=== PATIENT | female | born 1955 | race Caucasian/White ===

== ENCOUNTER 2021-12-30 10:26 | Inpatient (IN) ==
[2021-12-30] MEDS ORDERED: 0.9 % Sodium Chloride 500 ML IVC ONE (10:59)
[2021-12-30 11:28] LABS: Basophils % 0.6 %; Eosinophils # 0.1 K/mcL (0.0-0.6); Eosinophils % 0.8 %; Hematocrit 45.2 % (35.3-44.9); Hemoglobin 14.7 g/dL (11.5-15.4); Immature Granulocytes % 0.1 % (0-4); Lymphocytes # 1.9 K/mcL (0.6-4.6); Lymphocytes % 26.3 %; Mean Corpuscular HGB Conc 32.5 g/dL (31.6-35.5); Mean Corpuscular Hemoglobin 29.8 pg (28.0-33.3); Mean Corpuscular Volume 91.7 fL (83.0-100.0); Mean Platelet Volume 11.3 fL (9.4-12.4); Monocytes # 0.5 K/mcL (0.0-1.3); Monocytes % 6.6 %; Neutrophils # 4.7 K/mcL (1.6-8.9); Platelet Count 206 K/mcL (140-400); Red Blood Count 4.93 M/mcL (3.82-4.97); Red Cell Distribution Width 12.2 % (11.5-14.5); Segmented Neutrophils % 65.6 %; White Blood Count 7.2 K/mcL (4.3-11.1)
[2021-12-30 11:38] LABS: INR 1.1; Prothrombin Time 12.1 Seconds (9.4-12.1)
[2021-12-30 11:41] LABS: Activated Partial Thrombo Time 31.4 Seconds (26.0-36.0)
[2021-12-30 11:50] LABS: BUN/Creatinine Ratio 13 (6-26); Blood Urea Nitrogen 12 mg/dL (8-23); Calcium 10.1 mg/dL (8.6-10.3); Carbon Dioxide 27 mEq/L (23-29); Chloride 102 mEq/L (98-107); Glucose 118 mg/dL (70-105); Osmolality,Calculated 285 (280-300); Potassium 3.7 mEq/L (3.5-5.1); Sodium 137 mEq/L (136-145); Troponin I < 0.03 ng/mL (< 0.04); eGFR For African Americans > 60 (> 60); eGFR For Non-African Americans 59 (> 60)
[2021-12-30 12:04] LABS: Thyroid Stimulating Hormone 2.955 mcIU/mL (0.340-5.600)
[2021-12-30 12:25] LABS: D-Dimer < 215 ng/mLFEU (0-500)
[2021-12-30] MEDS ORDERED: 0.9 % Sodium Chloride 1,000 ML IVC ONE (13:30)
[2021-12-30] MEDS ORDERED: DilTIAZem CD (24hr) 180 MG CAP.ER.24H PO STA (14:06)
[2021-12-30] MEDS ORDERED: DilTIAZem 50 MG/50 ML IV.SOLN IVC SCH (15:30)
[2021-12-30] MEDS ORDERED: Ondansetron ODT 4 MG TAB.RAPDIS SL PRN (17:19)
[2021-12-30] MEDS ORDERED: Naloxone 0.4 MG/ML INJ IVP PRN (17:19)
[2021-12-30] MEDS ORDERED: *HR* Metoprolol 5 MG/5 ML VIAL IVP ONE (17:26)
[2021-12-30] MEDS ORDERED: Perflutren Lipid Microsphere 1.3 ML in 0.9 % Sodium Chloride 8.7 ML IVP PRN (17:35)
[2021-12-30] MEDS ORDERED: *HR* Heparin 5,000 UNIT/ML VIAL IVP PRN ×2 (17:36)
[2021-12-30] MEDS ORDERED: *HR* Heparin 5,000 UNIT/ML VIAL IVP ONE (17:36)
[2021-12-30] MEDS ORDERED: Heparin 25,000UNIT/250ML 1/2NS 25,000 UNIT/250 ML IV.SOLN IVC SCH (17:45)
[2021-12-30 18:12] LABS: Hematocrit 41.3 % (35.3-44.9); Hemoglobin 13.7 g/dL (11.5-15.4); Mean Corpuscular HGB Conc 33.2 g/dL (31.6-35.5); Mean Corpuscular Hemoglobin 29.9 pg (28.0-33.3); Mean Corpuscular Volume 90.2 fL (83.0-100.0); Mean Platelet Volume 11.2 fL (9.4-12.4); Platelet Count 206 K/mcL (140-400); Red Blood Count 4.58 M/mcL (3.82-4.97)
[2021-12-30 18:39] LABS: INR 1.1; Prothrombin Time 12.3 Seconds (9.4-12.1)
[2021-12-30 18:41] LABS: Heparin anti-factor XA UFH < 0.04 IU/mL (0.30-0.70)
[2021-12-30] MEDS ORDERED: *HR* Metoprolol 5 MG/5 ML VIAL IVP PRN (18:50)
[2021-12-31 01:37] LABS: Basophils # 0.1 K/mcL (0.0-0.2); Basophils % 0.6 %; Eosinophils # 0.1 K/mcL (0.0-0.6); Eosinophils % 0.9 %; Hematocrit 40.8 % (35.3-44.9); Hemoglobin 13.5 g/dL (11.5-15.4); Immature Granulocytes % 0.1 % (0-4); Lymphocytes # 2.6 K/mcL (0.6-4.6); Lymphocytes % 33.1 %; Mean Corpuscular HGB Conc 33.1 g/dL (31.6-35.5); Mean Corpuscular Hemoglobin 30.1 pg (28.0-33.3); Mean Corpuscular Volume 90.9 fL (83.0-100.0); Mean Platelet Volume 11.7 fL (9.4-12.4); Monocytes # 0.6 K/mcL (0.0-1.3); Monocytes % 7.1 %; Neutrophils # 4.5 K/mcL (1.6-8.9); Platelet Count 183 K/mcL (140-400); Red Blood Count 4.49 M/mcL (3.82-4.97); Red Cell Distribution Width 12.1 % (11.5-14.5); Segmented Neutrophils % 58.2 %; White Blood Count 7.8 K/mcL (4.3-11.1)
[2021-12-31 01:55] LABS: BUN/Creatinine Ratio 18 (6-26); Blood Urea Nitrogen 15 mg/dL (8-23); Calcium 9.3 mg/dL (8.6-10.3); Carbon Dioxide 25 mEq/L (23-29); Chloride 104 mEq/L (98-107); Glucose 104 mg/dL (70-105); Osmolality,Calculated 285 (280-300); Potassium 4.3 mEq/L (3.5-5.1); Sodium 137 mEq/L (136-145); eGFR For African Americans > 60 (> 60); eGFR For Non-African Americans > 60 (> 60)
[2021-12-31] MEDS ORDERED: *HR* Metoprolol 5 MG/5 ML VIAL IVP SCH (09:30)
[2021-12-31] MEDS: Metoprolol XL (24 HR) Succ 25 MG TAB.ER.24H PO SCH (16:31)
[2021-12-31] MEDS: *HR* Heparin 5,000 UNIT/ML VIAL SQ SCH (17:19)
[2021-12-31] MEDS ORDERED: Metoprolol XL (24 HR) Succ 25 MG TAB.ER.24H PO SCH (21:00)
[2022-01-01 02:45] LABS: BUN/Creatinine Ratio 22 (6-26); Blood Urea Nitrogen 24 mg/dL (8-23); Calcium 9.3 mg/dL (8.6-10.3); Carbon Dioxide 24 mEq/L (23-29); Chloride 104 mEq/L (98-107); Glucose 107 mg/dL (70-105); Osmolality,Calculated 287 (280-300); Phosphorous 4.3 mg/dL (2.7-4.5); Sodium 136 mEq/L (136-145); eGFR For African Americans > 60 (> 60); eGFR For Non-African Americans 51 (> 60)
[2022-01-01] MEDS: *HR* Heparin 5,000 UNIT/ML VIAL SQ SCH ×2 (05:49→17:23)
[2022-01-01] MEDS: Metoprolol XL (24 HR) Succ 25 MG TAB.ER.24H PO SCH (08:20)
[2022-01-01] MEDS ORDERED: *HR* Metoprolol 5 MG/5 ML VIAL IVP ONE (08:25)
[2022-01-01] MEDS ORDERED: Metoprolol XL (24 HR) Succ 25 MG TAB.ER.24H PO ONE (09:00)
[2022-01-01] MEDS: Metoprolol XL (24 HR) Succ 50 MG TAB.ER.24H PO SCH (20:03)
[2022-01-02 03:21] LABS: Hematocrit 39.1 % (35.3-44.9); Hemoglobin 12.9 g/dL (11.5-15.4); Mean Corpuscular Hemoglobin 29.7 pg (28.0-33.3); Mean Corpuscular Volume 90.1 fL (83.0-100.0); Platelet Count 187 K/mcL (140-400); Red Blood Count 4.34 M/mcL (3.82-4.97); Red Cell Distribution Width 11.9 % (11.5-14.5); White Blood Count 6.2 K/mcL (4.3-11.1)
[2022-01-02 03:37] LABS: Alanine Aminotransferase 13 Units/L (7-52); Albumin 3.9 g/dL (3.5-5.7); Albumin/Globulin Ratio 1.3 (1.1-2.2); Alkaline Phosphatase 75 Units/L (34-104); Aspartate Amino Transferase 14 Units/L (13-39); BUN/Creatinine Ratio 28 (6-26); Bilirubin,Total 0.5 mg/dL (0.3-1.0); Blood Urea Nitrogen 25 mg/dL (8-23); Calcium 9.2 mg/dL (8.6-10.3); Carbon Dioxide 24 mEq/L (23-29); Chloride 104 mEq/L (98-107); Glucose 106 mg/dL (70-105); Osmolality,Calculated 287 (280-300); Potassium 3.9 mEq/L (3.5-5.1); Sodium 136 mEq/L (136-145); Total Protein 6.9 g/dL (6.4-8.9); eGFR For African Americans > 60 (> 60); eGFR For Non-African Americans > 60 (> 60)
[2022-01-02] MEDS: *HR* Heparin 5,000 UNIT/ML VIAL SQ SCH ×2 (05:48→17:37)
[2022-01-02] MEDS: Metoprolol XL (24 HR) Succ 50 MG TAB.ER.24H PO SCH (07:22)
[2022-01-02] MEDS ORDERED: *HR* Metoprolol 5 MG/5 ML VIAL IVP PRN (11:13)
[2022-01-02] MEDS ORDERED: *HR* Metoprolol 5 MG/5 ML VIAL IVP ONE (11:15)
[2022-01-03] MEDS: *HR* Heparin 5,000 UNIT/ML VIAL SQ SCH (05:51)
[2022-01-03] MEDS ORDERED: DilTIAZem CD (24hr) 120 MG CAP.ER.24H PO SCH (09:00)
[2022-01-03] MEDS ORDERED: Metoprolol 100 MG TABLET PO SCH ×2 (09:00)
[2022-01-03 11:42] VITALS: BP 127/83; PULSE 64; TEMP 98.6; O2SAT 96
== END 2022-01-03 12:01 | disposition home or self-care (01) | DRG 310 ==
LOC: 3NENU 10:26 → EMEROOARM 10:26 → 3NENU 16:57 → 2NNU 21:16 → 3NENU 12-31 17:02
PROVIDERS: ADMIT Internal Medicine; ATTEND Internal Medicine